=== PATIENT | female | born 1960 | race Hispanic/Latino ===

== ENCOUNTER → 2019-10-19 | Outpatient (CLI) | payer MEDICARE | END | disposition home or self-care (01) | LOC: SHCH 10:24 | PROVIDERS: ATTEND Internal Medicine Cardiovascular Disease | DX: R07.9 Chest pain, unspecified (principal) | CPT/HCPCS: 93306; 93356 ==

== ENCOUNTER 2021-01-13 12:35 | Emergency (ER) | payer MEDICARE ==
[~2021-01-13] VITALS: Ht 152.4 cm; Wt 90.7 kg
[~2021-01-13 12:35] MED LIST: LISI-809 PO; PREG75 PO; TRAZ-185 PO; VIT1CAPS46 PO
[2021-01-13] MEDS ORDERED: AZITHROMYCIN 250 MG TABLET PO STA (14:43)
[2021-01-13] MEDS ORDERED: IPRATROPIUM/ALBUTEROL SULFATE 3 ML SOLUTION IH STA (14:43)
[2021-01-13] MEDS ORDERED: SOLU-MEDROL 125MG VIAL IVP ONE (15:00)
[2021-01-13] MEDS ORDERED: BUDESONIDE 0.5 MG/2 ML INH IH ONE (15:00)
[2021-01-13 16:00] VITALS: BP 168/86
[2021-01-13] MEDS ORDERED: FLUT220HFA IH (16:02)
[2021-01-13] MEDS ORDERED: AZIT1PAC PO (16:02)
[2021-01-13] MEDS ORDERED: ALBU6.7H9 IH (16:02)
== END 2021-01-13 16:15 | disposition home or self-care (01) ==
LOC: EDH 12:35
DX: J18.9 Pneumonia, unspecified organism (principal); Z20.822 Contact with and (suspected) exposure to COVID-19; I10 Essential (primary) hypertension; E11.9 Type 2 diabetes mellitus without complications; Z79.51 Long term (current) use of inhaled steroids; Z79.52 Long term (current) use of systemic steroids; Z79.899 Other long term (current) drug therapy; Z88.0 Allergy status to penicillin; Z90.49 Acquired absence of other specified parts of digestive tract
CPT/HCPCS: 71045; 87635; 94640; 96374; 99284; C9803; J2930

== ENCOUNTER 2021-01-30 09:57 | Inpatient (IN) | payer MEDICARE ==
[~2021-01-30] VITALS: Ht 154.9 cm; Wt 81.2 kg
[~2021-01-30 09:57] MED LIST changes: +ALBU6.7H9 IH; +AZIT1PAC PO; +FLUT220HFA IH; -LISI-809 PO; +LISI5TAB21 PO
[2021-01-30 10:23] LABS: BASOPHILS % (AUTO) 0.4 % (0.0-5.0); EOSINOPHILS % (AUTO) 3.6 % (0.0-8.0); HEMATOCRIT 33.2 % (36-48); LYMPHOCYTES % (AUTO) 14.4 % (21.0-51.0); MEAN CORPUSCULAR HEMOGLOBIN 27.7 pg (27.0-33.0); MEAN CORPUSCULAR HGB CONC 31.6 g/dL (32.0-36.0); MEAN CORPUSCULAR VOLUME 87.6 fL (79-99); MONOCYTES % (AUTO) 6.7 % (3.0-13.0); NEUTROPHILS % (AUTO) 74.4 % (40.0-77.0); PLATELET COUNT (AUTO) 351 K/uL (130-400); RED BLOOD CELL COUNT(AUTO) 3.79 MIL/uL (4.00-5.50); RED CELL DISTRIBUTION WIDTH 13.4 % (11.0-15.5); WHITE BLOOD COUNT (AUTO) 19.4 K/uL (4.8-10.8)
[2021-01-30 10:39] LABS: CREATININE 0.9 mg/dL (0.5-1.5)
[2021-01-30 10:44] LABS: BILIRUBIN,TOTAL 0.4 mg/dL (0.2-1.0); MAGNESIUM 1.9 mg/dL (1.80-2.40); TOTAL PROTEIN, SERUM 7.8 g/dL (6.0-8.3)
[2021-01-30 10:56] LABS: B-TYPE NATRIURETIC PEPTIDE 660 pg/mL (0-100)
[2021-01-30] MEDS ORDERED: FUROSEMIDE 40MG VIAL IV ONE (11:00)
[2021-01-30] MEDS ORDERED: ASPIRIN 325MG TAB PO ONE (11:00)
[2021-01-30] MEDS ORDERED: NITROGLYCERIN 0.4 MG SL TAB SL PRN ×2 (11:00→14:30)
[2021-01-30] MEDS ORDERED: AZITHROMYCIN 250 MG TABLET PO ONE (11:30)
[2021-01-30] MEDS ORDERED: PHARMACY COMMUNICATION MISC SCH ×2 (12:00)
[2021-01-30] MEDS: CEFTRIAXONE 1G VIAL IVP SCH (12:03)
[2021-01-30] MEDS ORDERED: INSLAN SQ (13:05)
[2021-01-30] MEDS ORDERED: PREG75 PO (13:05)
[2021-01-30] MEDS ORDERED: LISI20TA24 PO (13:05)
[2021-01-30] MEDS ORDERED: FURO40TA5 PO (13:05)
[2021-01-30] MEDS ORDERED: CIPR500S5 PO (13:05)
[2021-01-30] MEDS ORDERED: CEFTRIAXONE 1G VIAL IV SCH (14:30)
[2021-01-30] MEDS ORDERED: GLUCAGON 1MG KIT 1 MG ML IM PRN (14:30)
[2021-01-30] MEDS: 0.9% NACL 250ML IVPB SCH ×2 (14:30→15:57)
[2021-01-30] MEDS ORDERED: ACETAMINOPHEN 325 MG TAB PO PRN (14:30)
[2021-01-30] MEDS ORDERED: DEXTROSE 50%-WATER 50 ML DISP.SYRIN IV PRN (14:30)
[2021-01-30] MEDS ORDERED: LACTULOSE 20 GM/30 ML UDCUP PO PRN (14:30)
[2021-01-30] MEDS ORDERED: HYDRALAZINE 20MG/ML VIAL IV PRN (14:30)
[2021-01-30] MEDS ORDERED: ONDANSETRON 4MG INJ IV PRN (14:30)
[2021-01-30] MEDS ORDERED: MAG/ALUM/SIMETH 30 ML UDCUP PO PRN (14:30)
[2021-01-30] MEDS ORDERED: DIPHENHYDRAMINE HCL 25 MG CAPSULE PO PRN (14:30)
[2021-01-30] MEDS ORDERED: GUAIFENESIN-DM 200/20 MG 10 ML PO PRN (14:30)
[2021-01-30] MEDS ORDERED: AZITHROMYCIN 500MG VIAL IVPB SCH (14:30)
[2021-01-30] MEDS ORDERED: IOHEXOL-350 75 ML VIAL IV ONE (14:34)
[2021-01-30] MEDS ORDERED: IPRATROPIUM/ALBUTEROL SULFATE 3 ML SOLUTION IH ONE ×2 (15:22→15:49)
[2021-01-30] MEDS: DOXYCYCLINE 100MG+NS 250ML IV SCH (15:57)
[2021-01-30] MEDS: NIFEDIPINE ER 30 MG TAB PO ONE ×2 (16:00→16:40)
[2021-01-30] MEDS ORDERED: NIFEDIPINE ER 30 MG TAB PO SCH (16:30)
[2021-01-30] MEDS: INSULIN HUMULIN R 100 UNIT/ML 3ML SQ SCH ×2 (16:30→20:09)
[2021-01-30] MEDS: ACETAMINOPHEN WITH CODEINE 1 TAB TAB PO PRN ×2 (16:51→22:06)
[2021-01-30] MEDS: IPRATROPIUM/ALBUTEROL SULFATE 3 ML SOLUTION IH SCH ×2 (18:31→23:40)
[2021-01-30] MEDS ORDERED: FUROSEMIDE 20MG VIAL ONE (20:03)
[2021-01-30] MEDS: FAMOTIDINE 20MG TAB PO SCH (20:41)
[2021-01-30] MEDS: FUROSEMIDE 40MG VIAL IVP SCH (20:41)
[2021-01-31] VITALS (7 sets, daily range): BP systolic 113–144; BP diastolic 59–68
[2021-01-31] MEDS: DOXYCYCLINE 100MG+NS 250ML IV SCH ×2 (02:03→15:42)
[2021-01-31] MEDS: 0.9% NACL 250ML IVPB SCH ×4 (02:03→17:54)
[2021-01-31] MEDS: ACETAMINOPHEN WITH CODEINE 1 TAB TAB PO PRN (05:51)
[2021-01-31] MEDS: INSULIN HUMULIN R 100 UNIT/ML 3ML SQ SCH ×4 (05:55→21:10)
[2021-01-31] MEDS: IPRATROPIUM/ALBUTEROL SULFATE 3 ML SOLUTION IH SCH ×3 (07:30→19:05)
[2021-01-31] MEDS: LOSARTAN 50 MG TABLET PO SCH (09:24)
[2021-01-31] MEDS: FUROSEMIDE 40MG VIAL IVP SCH ×2 (09:24→21:01)
[2021-01-31] MEDS: FAMOTIDINE 20MG TAB PO SCH ×2 (09:24→21:01)
[2021-01-31] MEDS: NIFEDIPINE ER 30 MG TAB PO SCH (09:24)
[2021-01-31] MEDS: ENOXAPARIN SODIUM 40 MG/0.4 ML SYRINGE SQ SCH (09:25)
[2021-01-31] MEDS: CEFTRIAXONE 1G VIAL IVP SCH (11:30)
[2021-01-31] MEDS ORDERED: AZITHROMYCIN 500MG+NS 250ML IV SCH (16:30)
[2021-01-31] MEDS: AZITHROMYCIN 500MG VIAL IV SCH (17:54)
[2021-02-01] MEDS: IPRATROPIUM/ALBUTEROL SULFATE 3 ML SOLUTION IH SCH ×5 (00:27→23:54)
[2021-02-01] MEDS: ACETAMINOPHEN WITH CODEINE 1 TAB TAB PO PRN (01:12)
[2021-02-01] MEDS: 0.9% NACL 250ML IVPB SCH ×3 (02:20→16:00)
[2021-02-01] MEDS: DOXYCYCLINE 100MG+NS 250ML IV SCH ×2 (02:20→16:00)
[2021-02-01 03:58] LABS: BASOPHILS % (AUTO) 0.3 % (0.0-5.0); EOSINOPHILS % (AUTO) 3.5 % (0.0-8.0); HEMATOCRIT 30.3 % (36-48); LYMPHOCYTES % (AUTO) 16.3 % (21.0-51.0); MEAN CORPUSCULAR HEMOGLOBIN 27.4 pg (27.0-33.0); MEAN CORPUSCULAR HGB CONC 30.7 g/dL (32.0-36.0); MEAN CORPUSCULAR VOLUME 89.1 fL (79-99); MONOCYTES % (AUTO) 7.4 % (3.0-13.0); NEUTROPHILS % (AUTO) 71.9 % (40.0-77.0); PLATELET COUNT (AUTO) 374 K/uL (130-400); RED CELL DISTRIBUTION WIDTH 13.7 % (11.0-15.5); WHITE BLOOD COUNT (AUTO) 15.1 K/uL (4.8-10.8)
[2021-02-01 04:13] LABS: CREATININE 1.6 mg/dL (0.5-1.5); MAGNESIUM 1.7 mg/dL (1.80-2.40); PHOSPHORUS 4.7 mg/dL (2.5-4.9); POTASSIUM 3.5 mmol/L (3.5-5.1)
[2021-02-01 04:42] VITALS: BP 114/57
[2021-02-01] MEDS: INSULIN HUMULIN R 100 UNIT/ML 3ML SQ SCH ×4 (06:17→20:20)
[2021-02-01 08:24] VITALS: BP 129/67
[2021-02-01] MEDS: ENOXAPARIN SODIUM 40 MG/0.4 ML SYRINGE SQ SCH (09:14)
[2021-02-01] MEDS: FUROSEMIDE 40MG VIAL IVP SCH (09:15)
[2021-02-01] MEDS: FAMOTIDINE 20MG TAB PO SCH ×2 (09:15→20:01)
[2021-02-01] MEDS: LOSARTAN 50 MG TABLET PO SCH (09:15)
[2021-02-01] MEDS: NIFEDIPINE ER 30 MG TAB PO SCH (09:15)
[2021-02-01 10:53] VITALS: BP 121/59
[2021-02-01] MEDS: CEFTRIAXONE 1G VIAL IVP SCH (11:30)
[2021-02-01] MEDS: KCL 20 MEQ ERTAB PO SCH (12:57)
[2021-02-01] MEDS: AZITHROMYCIN 500MG VIAL IV SCH (16:00)
[2021-02-01 16:22] VITALS: BP 140/74
[2021-02-01 17:22] LABS: CREATININE 1.7 mg/dL (0.5-1.5)
[2021-02-01 19:29] VITALS: BP 133/60
[2021-02-02] VITALS (7 sets, daily range): BP systolic 120–140; BP diastolic 54–73
[2021-02-02] MEDS: DOXYCYCLINE 100MG+NS 250ML IV SCH (03:00)
[2021-02-02] MEDS: 0.9% NACL 250ML IVPB SCH ×3 (03:00→15:14)
[2021-02-02] MEDS: ACETAMINOPHEN WITH CODEINE 1 TAB TAB PO PRN ×2 (03:07→11:17)
[2021-02-02 04:32] LABS: BASOPHILS % (AUTO) 0.3 % (0.0-5.0); EOSINOPHILS % (AUTO) 2.9 % (0.0-8.0); HEMATOCRIT 29.2 % (36-48); LYMPHOCYTES % (AUTO) 17.5 % (21.0-51.0); MEAN CORPUSCULAR HGB CONC 30.8 g/dL (32.0-36.0); MEAN CORPUSCULAR VOLUME 87.7 fL (79-99); MONOCYTES % (AUTO) 7.8 % (3.0-13.0); NEUTROPHILS % (AUTO) 70.8 % (40.0-77.0); PLATELET COUNT (AUTO) 354 K/uL (130-400); RED BLOOD CELL COUNT(AUTO) 3.33 MIL/uL (4.00-5.50); RED CELL DISTRIBUTION WIDTH 13.8 % (11.0-15.5); WHITE BLOOD COUNT (AUTO) 13.5 K/uL (4.8-10.8)
[2021-02-02 04:40] LABS: CREATININE 1.6 mg/dL (0.5-1.5); POTASSIUM 3.9 mmol/L (3.5-5.1)
[2021-02-02] MEDS: INSULIN HUMULIN R 100 UNIT/ML 3ML SQ SCH ×4 (05:48→21:14)
[2021-02-02] MEDS: IPRATROPIUM/ALBUTEROL SULFATE 3 ML SOLUTION IH SCH ×3 (07:32→18:47)
[2021-02-02] MEDS ORDERED: FUROSEMIDE 40 MG TABLET PO SCH (09:00)
[2021-02-02] MEDS: FAMOTIDINE 20MG TAB PO SCH ×2 (09:10→21:08)
[2021-02-02] MEDS: ENOXAPARIN SODIUM 40 MG/0.4 ML SYRINGE SQ SCH (09:10)
[2021-02-02] MEDS: KCL 20 MEQ ERTAB PO SCH (09:11)
[2021-02-02] MEDS: LOSARTAN 50 MG TABLET PO SCH (09:11)
[2021-02-02] MEDS: NIFEDIPINE ER 30 MG TAB PO SCH (09:11)
[2021-02-02] MEDS: CEFTRIAXONE 1G VIAL IVP SCH (09:11)
[2021-02-02] MEDS: FUROSEMIDE 40 MG TABLET PO SCH (21:08)
[2021-02-03] MEDS: IPRATROPIUM/ALBUTEROL SULFATE 3 ML SOLUTION IH SCH ×2 (00:46→08:47)
[2021-02-03] MEDS: 0.9% NACL 250ML IVPB SCH (03:00)
[2021-02-03] MEDS: ACETAMINOPHEN WITH CODEINE 1 TAB TAB PO PRN (03:42)
[2021-02-03 04:30] VITALS: BP 129/63
[2021-02-03 04:49] LABS: BASOPHILS % (AUTO) 0.2 % (0.0-5.0); EOSINOPHILS % (AUTO) 5.5 % (0.0-8.0); HEMATOCRIT 31.9 % (36-48); LYMPHOCYTES % (AUTO) 22.2 % (21.0-51.0); MEAN CORPUSCULAR HEMOGLOBIN 27.1 pg (27.0-33.0); MEAN CORPUSCULAR HGB CONC 31.3 g/dL (32.0-36.0); MEAN CORPUSCULAR VOLUME 86.4 fL (79-99); MONOCYTES % (AUTO) 9.1 % (3.0-13.0); NEUTROPHILS % (AUTO) 62.6 % (40.0-77.0); PLATELET COUNT (AUTO) 428 K/uL (130-400); RED BLOOD CELL COUNT(AUTO) 3.69 MIL/uL (4.00-5.50); RED CELL DISTRIBUTION WIDTH 13.7 % (11.0-15.5); WHITE BLOOD COUNT (AUTO) 10.6 K/uL (4.8-10.8)
[2021-02-03 05:15] LABS: % IRON SATURATION 9.5 % (22-44)
[2021-02-03] MEDS: INSULIN HUMULIN R 100 UNIT/ML 3ML SQ SCH (06:03)
[2021-02-03 08:00] VITALS: BP 123/60
[2021-02-03] MEDS: KCL 20 MEQ ERTAB PO SCH (08:27)
[2021-02-03 08:56] LABS: CREATININE 1.6 mg/dL (0.5-1.5)
[2021-02-03] MEDS ORDERED: EPOETIN ALFA-EPBX (NON-ESRD) 10,000 UNIT/ML VIAL SQ SCH (09:00)
[2021-02-03] MEDS ORDERED: DOXYCYCLINE HYCLATE 100 MG TABLET PO SCH (09:00)
[2021-02-03] MEDS ORDERED: LEVOFLOXACIN 500 MG TABLET PO SCH (09:00)
[2021-02-03] MEDS ORDERED: IRON SUCROSE COMPLEX 500 MG in 0.9%NACL 50ML 50 ML IV SCH (09:00)
[2021-02-03] MEDS ORDERED: LOSA50TA2 PO (09:11)
[2021-02-03] MEDS ORDERED: FURO40TA7 PO (09:11)
[2021-02-03] MEDS ORDERED: NIFE-40 PO (09:11)
[2021-02-03] MEDS ORDERED: CEFU500T67 PO (09:13)
[2021-02-03] MEDS: FAMOTIDINE 20MG TAB PO SCH (09:26)
[2021-02-03] MEDS: FUROSEMIDE 40 MG TABLET PO SCH (09:27)
[2021-02-03] MEDS: NIFEDIPINE ER 30 MG TAB PO SCH (09:27)
[2021-02-03] MEDS: ENOXAPARIN SODIUM 40 MG/0.4 ML SYRINGE SQ SCH (09:27)
[2021-02-03] MEDS: LOSARTAN 50 MG TABLET PO SCH (09:27)
[2021-02-03] MEDS ORDERED: CEFTRIAXONE 1G VIAL IVP SCH (09:30)
[2021-02-03] MEDS ORDERED: COMPOUND IV MISC 1 EACH IVSOLN MISC PRN (09:30)
[2021-02-03 10:58] VITALS: BP 141/71
== END 2021-02-03 11:45 | disposition home or self-care (01) | DRG 291 ==
LOC: EDH 09:57 → EDHIP 14:07 → 4AH 01-31 01:36
PROVIDERS: ADMIT Hospitalist; ATTEND Hospitalist
DX: I11.0 Hypertensive heart disease with heart failure (principal); J80 Acute respiratory distress syndrome; I50.33 Acute on chronic diastolic (congestive) heart failure; I16.1 Hypertensive emergency; N17.9 Acute kidney failure, unspecified; J20.9 Acute bronchitis, unspecified; Z20.822 Contact with and (suspected) exposure to COVID-19; I16.0 Hypertensive urgency; M19.90 Unspecified osteoarthritis, unspecified site; E78.00 Pure hypercholesterolemia, unspecified; D64.9 Anemia, unspecified; M81.0 Age-related osteoporosis without current pathological fracture; E11.21 Type 2 diabetes mellitus with diabetic nephropathy; E78.5 Hyperlipidemia, unspecified; Z88.0 Allergy status to penicillin; Z90.49 Acquired absence of other specified parts of digestive tract; Z87.01 Personal history of pneumonia (recurrent); Z86.73 Personal history of transient ischemic attack (TIA), and cerebral infarction without residual deficits; Z83.3 Family history of diabetes mellitus; Z82.41 Family history of sudden cardiac death; Z82.3 Family history of stroke; Z82.49 Family history of ischemic heart disease and other diseases of the circulatory system
CPT/HCPCS: 36415; 71045; 71275; 80048; 80053; 82550; 82948; 83036; 83540; 83550; 83735; 83880; 84100; 84145; 84484; 85025; 85378; 87040; 87071; 87205; 87486; 87581; 87633; 87635; 87798; 93005; 93306; 93356; 93970; 94640; 94664; C9803; G0378; J0360; J0696; J1650; J1756; J1815; J1940; J3490; J7050; Q0163; Q9967

== ENCOUNTER → 2022-11-10 | Outpatient (CLI) | payer MEDICARE ==
[~2022-11-10] MED LIST changes: -ALBU6.7H9 IH; -AZIT1PAC PO; -FLUT220HFA IH; +INSLAN SQ; -LISI5TAB21 PO; +METO2.5T2 PO; -PREG75 PO; -TRAZ-185 PO; -VIT1CAPS46 PO
== END | disposition home or self-care (01) ==
LOC: RAH 13:52
PROVIDERS: ATTEND Internal Medicine Cardiovascular Disease
DX: R06.00 Dyspnea, unspecified (principal); R79.89 Other specified abnormal findings of blood chemistry; R06.02 Shortness of breath; I51.7 Cardiomegaly; M47.815 Spondylosis without myelopathy or radiculopathy, thoracolumbar region
CPT/HCPCS: 78579; 71046; A9558

== ENCOUNTER → 2022-11-12 | Outpatient (CLI) | payer MEDICARE | END | disposition home or self-care (01) | LOC: RAH 14:39 | PROVIDERS: ATTEND Internal Medicine Cardiovascular Disease | DX: R60.9 Edema, unspecified (principal) | CPT/HCPCS: 93970 ==

== ENCOUNTER 2024-03-20 16:46 | Emergency (ER) | payer MEDICARE ==
[~2024-03-20] VITALS: Ht 152.4 cm; Wt 70.8 kg
[~2024-03-20 16:46] MED LIST changes: +ACET-2247 PO; +AMLO-258 PO; +ASPI-1197 PO; +ATOR40TA71 PO; +BENZ-226 PO; +CLON0.1T PO; +CLOP75TA32 PO; +FOLI0.8T22 PO; +GUAI5SYR PO; -INSLAN SQ; +LACT10SO9 PO; +LOSA50TA64 PO; +MELA3TAB41 PO; -METO2.5T2 PO; +METO25TA6 PO; +NYST15PO13 TP; +ONDA-104 PO; +PANT20TA18 PO; +POLY17PO4 PO; +PREG25 PO; +SEVE800T7 PO; +TRAM50TA4 PO
--- NOTE | 2024-03-20 17:10 | ERN ---
General Stated Complaint: BLEEDING FROM MOUTH Time Seen by MD: 16:49 History of Present Illness Initial Comments 63-year-old female on hemodialysis presents to the ED for evaluation due to bleeding from her mouth. Family reports patient had 12 teeth extractions on March 14 and has now been bleeding from her mouth. Family reports patient stopped taking Plavix 2 days before having the teeth extractions. Allergies: Coded Allergies: Penicillins (Unverified Allergy, Unknown, 09/17/20) gabapentin (Unverified Adverse Reaction, Mild, 05/11/23) anxiety Home Meds Reported Medications Lactulose (Lactulose) 20 Gram/30 Ml Solution, 20 GM PO [id number] PRN for CONSTIPATION, ML 07/18/23 Melatonin (Melatonin) 3 Mg Tablet, 6 MG PO HSPRN PRN for INSOMNIA, TAB 07/18/23 Benzonatate (Benzonatate) 100 Mg Capsule, 100 MG PO Q8H PRN for COUGH, CAP 07/18/23 Ondansetron HCl (Ondansetron HCl) 4 Mg Tablet, 4 MG PO Q8H PRN for NAUSEA/VOMITING, TAB 07/18/23 Guaifenesin/Dextromethorphan (Guaifenesin Dm Syrup) 100 Mg-10 Mg/5 Ml Syrup, 5 ML PO Q4HPRN PRN for COUGH, ML 07/18/23 Atorvastatin Calcium (Atorvastatin Calcium) 40 Mg Tablet, 40 MG PO HS, TAB 07/18/23 Clopidogrel Bisulfate (Clopidogrel) 75 Mg Tablet, 75 MG PO DAILY, TAB 07/18/23 Polyethylene Glycol 3350 (Miralax) 17 Gram Powd.pack, 17 GM PO DAILY 07/18/23 Amlodipine Besylate (Amlodipine Besylate) 10 Mg Tablet, 10 MG PO DAILY for 30 Days, #30 TAB 0 Refills HOLD IF SBP LESS THAN 90 OR DBP LESS THAN 50. 07/18/23 Aspirin (Aspirin) 81 Mg Tab.chew, 81 MG PO DAILY, TAB.CHEW 07/18/23 Metoprolol Tartrate (Metoprolol Tartrate) 25 Mg Tablet, 25 MG PO BID, TAB HOLD FOR SBP LESS THAN 90 OR DBP LESS THAN 50, AND PULSE LESS THAN 60. 07/18/23 Clonidine HCl (Clonidine HCl) 0.1 Mg Tablet, 0.1 MG PO [id number] PRN for IF SBP GREATER THAN 160, TAB 07/18/23 Acetaminophen (Tylenol) 325 Mg Tablet, 650 MG PO Q4HPRN PRN for MILD PAIN (1-3), TAB 07/18/23 Folic Acid/Vitamin B Comp W-C (Nerissa-Misael Tablet) 0.8 Mg Tablet, 0.8 MG PO DAILY, TAB 07/18/23 Pantoprazole Sodium (Pantoprazole Sodium) 20 Mg Tablet.dr, 20 MG PO DAILY, TAB 07/18/23 Sevelamer Carbonate (Renvela) 800 Mg Tablet, 1600 MG PO TIDMEALS, TAB 07/18/23 Pregabalin (Lyrica) 25 Mg Cap, 25 MG PO BID, CAP 07/18/23 Nystatin (Nystatin) 100,000 Unit/Gram Powder, 15 GM TP BID, APPL APPLY TO ABDOMINAL FOLDS 07/18/23 Tramadol Hcl (Tramadol HCl) 50 Mg Tablet, 50 MG PO Q8H PRN for MODERATE PAIN (4- 6), TAB 07/18/23 Losartan Potassium (Losartan Potassium) 50 Mg Tablet, 50 MG PO BID, TAB HOLD FOR SBP LESS THAN 90 OR DBP LESS THAN 50. 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 Past Surgical History: Appendectomy, Cholecystectomy Social History Social History: Negative, Lives with family Female( History) History: Not Applicable ROS Dictation Constitutional: Negative for fever,chills, and weight loss Eyes: Negative for injury, pain,redness, and discharge ENT: Positive for mouth bleeding Negative for injury,pain or swelling Cardiovascular: Negative for chest pain, palpitations, and edema Respiratory: Negative for shortness of breath, cough, and wheezing, Abdomen/GI: Negative for abdominal pain, nausea, vomiting, diarrhea, and constipation Back: Negative for injury and pain : Negative for injury, bleeding and discharge MS/Extremity: Negative for injury and deformity Skin: Negative for rash, and discoloration Neuro: Negative for headache, weakness, numbness, tingling, and seizure Psych: Negative for suicide ideation, homicidal ideation, and hallucinations Physical Exam Physical Exam Dictation General: awake, alert, NAD Head/Face: Normocephalic, atraumatic Eyes: PERRL, EOMI, vision at baseline ENT: oral cavity clear, TMs clear, multiple teeth extractions, mild bleeding, INCISOR 13 SOCKET BLEED Neck: Trachea midline, supple, no nuchal rigidity Cardiovascular: RRR, normal S1/S2, No MRGs, no JVD Respiratory: CTAB, no respiratory distress, No rales or wheezes Abdomen: Soft, non-tender, non-distended, normal bowel sounds, no guarding or rebound. Skin: Warm, dry, normal turgor, no rash MS/Extremity: Pulses equal, no cyanosis, neurovascular intact, FROM Neuro: COAx4, GCS 15, strength 5/5, CN 2-12 intact, normal cerebellar exam, normal gait, Psych: Normal behavior, mood, and affect normal MDM MDM: Differential diagnosis: POST EXTRACTION TEETH BLEEDING, ORAL BLEED Previous outside records reviewed: Old ER visits. Need for hospitalization: Patient does not meet criteria for hospitalization. Need for emergency major/minor surgery: No Patient's prior external medical records from other ER visits were reviewed by me as indicated. Prior testing and results from previous visits were reviewed. Prior tests were taken into account with medical decision making and resource utilization, independent historian/historians were used to obtain complete medical history. I independently interpreted the test that were performed, results were reviewed by me and considered findings on radiology if ordered. Medical management and examination interpretation discussions were had by me with other qualified healthcare professionals as indicated for the patient's care. PATIENT IS A 63-YEAR-OLD FEMALE COMING IN TO BE EVALUATED FOR POST EXTRACTION TOOTH BLEEDING. PATIENT STATES THAT THEY EXTRACTED 12 TEETH SHE WAS BLEEDING FROM THE INCISOR ON THE LEFT SIDE. FOR THE CLOCK WAS PLACED HEMOSTASIS OBTAINED. PATIENT DISCHARGED IN STABLE CONDITION I ADVISED HER APPROPRIATE FOLLOW UP AND CLEAR LIQUID DIET FOR ONE DAY. ED Course Vital Signs Date Time Temp Pulse Resp B/P (MAP) Pulse Ox O2 Delivery O2 Flow Rate FiO2 03/20/24 17:10 97.9 81 16 167/76 97 Room Air 0 DX & DISP Disposition: Discharge Departure Impression: Primary Impression: Bleeding post tooth extraction Condition: Stable Additional Instructions: FOLLOW-UP WITH PRIMARY CARE PROVIDER IN 1 TO 2 DAYS. TAKE MEDICATIONS DIRECTED HERE IN THE EMERGENCY ROOM. OKAY TO CONTINUE HOME MEDICATIONS UNLESS OTHERWISE DISCUSSED DURING YOUR VISIT IN THE EMERGENCY ROOM TODAY. RETURN TO YOUR NEAREST EMERGENCY ROOM IF SYMPTOMS WORSEN OR IF THERE IS NO IMPROVEMENT. CALL 911 IF YOU NEED IMMEDIATE ASSISTANCE. TAKE TYLENOL [id number] NEEDED AND IF NO CONTRAINDICATIONS ARE PRESENT. INCREASE ORAL HYDRATION. A WOUND CULTURE OR URINE CULTURE WAS ORDERED HERE IN THE EMERGENCY ROOM DEPARTMENT PLEASE FOLLOW-UP WITH PRIMARY CARE PROVIDER AND ADVISE THEM TO GET REPEAT PORTS FROM OUR FACILITY. IF YOU HAD ANY LUDY WRAP/SPLINTS THAT WERE APPLIED HERE, PLEASE DO NOT REMOVE THEM UNTIL YOU SEE YOUR PRIMARY CARE OR SPECIALTY. REFERRALS: Referrals: EUNICE VILLEGAS MD (PCP) Time of Disposition: 18:27 NIKO MOORE MD Mar 20, 2024 17:10
--- NOTE | 2024-03-20 18:56 | NUR ---
ASSUMED CARE AT THIS TIME.
[2024-03-20 18:57] VITALS: BP 155/66; PULSE 69; RESP 20; TEMP 96.9; O2SAT 98
== END 2024-03-20 19:01 | disposition home or self-care (01) ==
LOC: EDH 16:46
DX: K13.79 Other lesions of oral mucosa (principal); E11.9 Type 2 diabetes mellitus without complications; I11.0 Hypertensive heart disease with heart failure; I50.9 Heart failure, unspecified; K21.9 Gastro-esophageal reflux disease without esophagitis; Z79.02 Long term (current) use of antithrombotics/antiplatelets; Z79.82 Long term (current) use of aspirin; Z79.899 Other long term (current) drug therapy; Z88.0 Allergy status to penicillin; Z88.8 Allergy status to other drugs, medicaments and biological substances; Z90.49 Acquired absence of other specified parts of digestive tract; Z99.2 Dependence on renal dialysis
CPT/HCPCS: 99282